=== PATIENT | female | born 1950 | race Caucasian/White ===

== ENCOUNTER 2016-03-20 06:08 | Inpatient (IN) | payer OTHER ==
[2016-03-04 10:11] VITALS: BMI 37.9
[2016-03-04 11:31] VITALS: BP_SYST 112; RESP 20; TEMP 99
[~2016-03-20] VITALS: Ht 160 cm; Wt 97.0 kg
[2016-03-20] VITALS (17 sets, daily range): BP systolic 92–140; RESP 14–20; TEMP 97.2–99; Ht 160 cm; Wt 97.0 kg
[2016-03-20] MEDS ORDERED: SODIUM CHLORIDE 0.9% IV ONE ×4 (06:20)
[2016-03-20] MEDS ORDERED: TRANEXAMIC ACID IV ONE ×4 (06:20)
[2016-03-20] MEDS ORDERED: ROPIVACAINE 0.5% 139 MG, EPINEPHrine 1:1,000 0.2 MG, KETOROLAC INJ 30 MG, MORPHINE 10 MG SUBQ ONE ×4 (06:20)
[2016-03-20] MEDS ORDERED: CEFAZOLIN 2,000 MG in SODIUM CHLORIDE 0.9% 100 ML IV ONE (06:20)
[2016-03-20] MEDS ORDERED: LACT RINGERS 1,000 ML IV SCH ×2 (07:00→07:10)
[2016-03-20] MEDS ORDERED: MEPERIDINE 25 MG/ML IV PRN (07:00)
[2016-03-20] MEDS ORDERED: MIDAZOLAM 2 MG/2 ML INJ IV ONE (07:00)
[2016-03-20] MEDS ORDERED: OXYCODONE 5 MG TAB PO PRN (07:00)
[2016-03-20] MEDS ORDERED: ONDANSETRON 4 MG VIAL IV PRN ×2 (07:00→07:10)
[2016-03-20] MEDS ORDERED: GLYCOPYRROLATE 0.2 MG/ML VIAL IV ONE ×2 (07:00→10:13)
[2016-03-20] MEDS ORDERED: LIDOCAINE 1% BUFFERED 1 ML SYR INTRADERM PRN (07:00)
[2016-03-20] MEDS ORDERED: MORPHINE 2 MG/ML SYR IV PRN ×2 (07:00→07:10)
[2016-03-20] MEDS ORDERED: MORPHINE 4 MG/ML SYR IV PRN ×2 (07:00→07:10)
[2016-03-20] MEDS ORDERED: DIPHENHYDRAMINE 25 MG CAP PO PRN (07:10)
[2016-03-20] MEDS ORDERED: ACETAMINOPHEN 325 MG TAB PO PRN (07:10)
[2016-03-20] MEDS ORDERED: TEMAZEPAM 15 MG CAP PO PRN (07:10)
[2016-03-20] MEDS ORDERED: DOCUSATE SOD 100 MG CAP PO SCH (09:00)
[2016-03-20] MEDS ORDERED: MAG HYDROX 30 ML UDC PO SCH (09:00)
[2016-03-20] MEDS: DILAUDID 1 MG/ML AMP IV PRN ×4 (09:09→09:26)
[2016-03-20] MEDS ORDERED: BACITRACIN 50,000 UNITS INJ IRRIG ONE (10:08)
[2016-03-20] MEDS ORDERED: LIDOCAINE 2% SYR 5 ML IV ONE (10:13)
[2016-03-20] MEDS ORDERED: ROCURONIUM 50 MG VIAL IV ONE (10:13)
[2016-03-20] MEDS ORDERED: ACETAMINOPHEN 1,000 MG/100 ML IV ONE (10:13)
[2016-03-20] MEDS ORDERED: ONDANSETRON 4 MG VIAL IV PUSH ONE (10:13)
[2016-03-20] MEDS ORDERED: PROPOFOL 20 ML PER ML IV ONE (10:13)
[2016-03-20] MEDS ORDERED: NEOSTIGMINE 10 MG/10 ML VIAL IV ONE (10:13)
[2016-03-20] MEDS ORDERED: FENTANYL 100 MCG/2 ML AMP IV ONE (10:13)
[2016-03-20] MEDS: KETOROLAC 30 MG/ML VIAL IV PRN (10:19)
[2016-03-20] MEDS: CEFAZOLIN 2,000 MG in SODIUM CHLORIDE 0.9% 100 ML IV SCH ×2 (12:26→18:41)
[2016-03-20] MEDS: DOCUSATE SOD 100 MG CAP PO SCH (20:09)
[2016-03-20] MEDS: SENNA 8.6 MG TAB PO SCH (20:09)
[2016-03-21] MEDS: CEFAZOLIN 2,000 MG in SODIUM CHLORIDE 0.9% 100 ML IV SCH ×2 (00:46→06:15)
[2016-03-21 02:23] VITALS: BP_SYST 111; RESP 16; TEMP 98.3
[2016-03-21] MEDS ORDERED: ENOXAPARIN 40 MG/0.4 ML SYR SUBQ SCH (06:00)
[2016-03-21 07:10] VITALS: BP_SYST 104; RESP 18; TEMP 98.2
[2016-03-21] MEDS: DOCUSATE SOD 100 MG CAP PO SCH (08:29)
[2016-03-21] MEDS: SENNA 8.6 MG TAB PO SCH (08:29)
[2016-03-21] MEDS ORDERED: POLYETHYLENE GLYCOL 17 GM PACKET PO SCH (09:00)
[2016-03-21] MEDS ORDERED: FLEET ENEMA 132 ML BTL RECTAL PRN (09:45)
[2016-03-21] MEDS ORDERED: BISACODYL 10 MG SUPP RECTAL PRN (09:45)
[2016-03-21] MEDS: KETOROLAC 30 MG/ML VIAL IV PRN (11:05)
[2016-03-21 11:58] VITALS: BP_SYST 104; RESP 18; TEMP 98.2
[2016-03-21] MEDS ORDERED: MAG HYDROX 30 ML UDC PO SCH (20:00)
== END 2016-03-21 12:30 | disposition home health service (06) | DRG 470 ==
LOC: SDS 06:08 → ENPENDDIS 06:08 → 2NO 09:37
PROVIDERS: ADMIT Internal Medicine; ATTEND Internal Medicine
PROC: 0SRB03Z Replacement of Left Hip Joint with Ceramic Synthetic Substitute, Open Approach (ICD-10-PCS; principal; 2016-03-20 07:15)
DX: M16.12 Unilateral primary osteoarthritis, left hip (principal); J44.9 Chronic obstructive pulmonary disease, unspecified; K25.9 Gastric ulcer, unspecified as acute or chronic, without hemorrhage or perforation; I71.4 Abdominal aortic aneurysm, without rupture; Z96.653 Presence of artificial knee joint, bilateral; E78.5 Hyperlipidemia, unspecified; I10 Essential (primary) hypertension; G47.00 Insomnia, unspecified; M48.06 Spinal stenosis, lumbar region; G25.81 Restless legs syndrome; E07.9 Disorder of thyroid, unspecified; J45.909 Unspecified asthma, uncomplicated; Z72.0 Tobacco use
CPT/HCPCS: 76000; 80048; 85014; 85018; 86850; 86900; 86901; 94762; 94799